=== PATIENT | male | born 1990 | race Two or more races ===

== ENCOUNTER 2023-06-14 17:19 | Emergency (ER) | payer OTHER ==
[~2023-06-14] VITALS: Ht 165.1 cm; Wt 81.6 kg
[2023-06-14] MEDS ORDERED: DICLOFENAC POTA50 MG PO (19:54)
== END 2023-06-14 20:06 | disposition home or self-care (01) ==
LOC: ER 17:19
DX: M25.511 Pain in right shoulder (principal)